=== PATIENT | male | born 1955 | race Caucasian/White ===

== ENCOUNTER 2017-03-12 14:51 | Emergency (ER) | payer OTHER ==
[~2017-03-12] VITALS: Ht 175.3 cm; Wt 103.4 kg
[2017-03-12 15:52] LABS: HEMATOCRIT 38.6 % (38.0-50.0); MCH 32.4 PG (29.0-34.0); MCHC 34.5 G/DL (30.0-36.0); MCV 93.9 FL (86-99); MEAN PLAT.VOLUME 9.2 uM^3 (9.0-12.4); PLATELET COUNT 199 K/uL (156-360); RBC DIS.WIDTH-CV 12.2 % (11.8-14.6); RED BLOOD COUNT 4.11 M/uL (4.00-5.50); WHITE BLOOD COUNT 5.7 K/uL (4.1-10.2)
[2017-03-12 16:02] LABS: CHLORIDE 107 mEq/L (99-109); POTASSIUM 4.6 mEq/L (3.7-5.4); SODIUM 142 mEq/L (136-147)
[2017-03-12 16:04] LABS: GLUCOSE 94 mg/dL (70-99)
[2017-03-12 16:05] LABS: ANION GAP 9 MEQ/L (2-14)
[2017-03-12 16:08] LABS: GFR ESTIMATE (CALCULATED) > 59 mL/min/
[2017-03-12 16:09] LABS: UREA NITROGEN (BUN) 15 mg/dL (9-23)
[2017-03-12 18:22] VITALS: BP 158/83
== END 2017-03-12 18:23 | disposition home or self-care (01) ==
LOC: EME 14:51 → RME 14:51
DX: R60.0 Localized edema (principal); I10 Essential (primary) hypertension; Z87.891 Personal history of nicotine dependence
CPT/HCPCS: 70450; 71020; 80048; 85027; 93005; 93971; 99281; 99284

== ENCOUNTER 2017-09-22 20:55 | Emergency (ER) | payer OTHER ==
[~2017-09-22] VITALS: Ht 175.3 cm; Wt 104.2 kg
[2017-09-22 21:46] LABS: HEMATOCRIT 39.4 % (38.0-50.0); HEMOGLOBIN 13.7 G/DL (12.5-16.6); MCH 31.5 PG (29.0-34.0); MCHC 34.8 G/DL (30.0-36.0); MCV 90.6 FL (86-99); RBC DIS.WIDTH-CV 13.3 % (11.8-14.6); RBC DIS.WIDTH-SD 43.5 % (39-53); RED BLOOD COUNT 4.35 M/uL (4.00-5.50); WHITE BLOOD COUNT 7.3 K/uL (4.1-10.2)
[2017-09-22 21:54] LABS: CHLORIDE 106 mEq/L (99-109); POTASSIUM 3.8 mEq/L (3.7-5.4); SODIUM 137 mEq/L (136-147)
[2017-09-22 21:56] LABS: GLUCOSE 100 mg/dL (70-99); TOTAL PROTEIN 6.4 g/dL (6.4-8.3)
[2017-09-22 21:58] LABS: TOTAL BILIRUBIN 0.7 mg/dL (0.0-1.0)
[2017-09-22 22:00] LABS: ALKALINE PHOSPHATASE 86 IU/L (3-129); CREATININE 0.9 mg/dL (0.6-1.3); GFR ESTIMATE (CALCULATED) > 59 mL/min/ (58.99-99999)
[2017-09-22 22:01] LABS: AST (GOT) 24 IU/L (2-34); UREA NITROGEN (BUN) 16 mg/dL (9-23)
[2017-09-22 22:03] LABS: ALT (GPT) 27 IU/L (3-49); CREATINE KINASE 119 IU/L (1-294)
[2017-09-22 22:32] LABS: PLAT.SUFFICIENCY ADEQUATE; PLATELET COUNT 155 K/uL (156-360)
[2017-09-22 22:42] LABS: APPEARANCE CLEAR ((CLEAR)); BILIRUBIN NEGATIVE; BLOOD NEGATIVE; COLOR YELLOW ((YELLOW)); GLUCOSE (STRIP) NEGATIVE; KETONES NEGATIVE; LEUKOCYTES NEGATIVE; NITRITE NEGATIVE; PROTEIN (STRIP) NEGATIVE; UCUL ADDED? NO; UROBILINOGEN 0.2 MG/DL (0.2-1.0)
[2017-09-22] MEDS ORDERED: VALTREX1000 MG PO (23:11)
[2017-09-22 23:23] VITALS: BP 158/80
== END 2017-09-22 23:23 | disposition home or self-care (01) ==
LOC: EME 20:55
PROVIDERS: Physician Assistant
DX: M79.1 Myalgia (principal); R21 Rash and other nonspecific skin eruption; R50.9 Fever, unspecified; I10 Essential (primary) hypertension; G47.30 Sleep apnea, unspecified; Z87.891 Personal history of nicotine dependence
CPT/HCPCS: 80053; 81003; 82550; 85027; 99281; 99284